=== PATIENT | male | born 1980 | race Caucasian/White ===

== ENCOUNTER 2019-09-24 12:46 | Emergency (ER) | payer SELFPAY ==
[2019-09-24] MEDS ORDERED: NORMAL SALINE 1000 ML 1,000 ML IV ONE (12:59)
[2019-09-24] MEDS ORDERED: THIAMINE HCL 100 MG in NORMAL SALINE 50 ML IV ONE ×2 (13:00→15:30)
--- NOTE | 2019-09-24 13:02 | ER Document Report ---
ED Medical Screen (RME) - General Chief Complaint: Dizziness Stated Complaint: DIZZY/WEAK Time Seen by Provider: 09/24/19 12:54 TRAVEL OUTSIDE OF THE [place] IN LAST 30 DAYS: No - HPI Notes: 09/24/19 13:00 39-year-old male to the emergency department with complaints of dizziness and weakness that has been ongoing for the past year and getting worse most recently. He states that he feels like his cannot pass out all the time. He states that certain positions do not make this worse. He denies any chest pain, shortness of breath. He does drink alcohol quite excessivelyapproximately 6 beers a day. This is actually a decrease in what he had been in taking. He does admit to "diarrhea" for the past 2 years which he qualifies as loose and watery. He states he has not had a normal bowel movement since he took clindamycin 2 years ago for sinus infection. He denies any abdominal pain. He states he typically has 2-3 bowel movements a day. He denies any seizure activity or any other complaints. I performed a brief medical screening exam on this patient and determined he needs further management and evaluation by means at ER provider. I placed initial orders to help expedite in his treatment plan today to include lab work and medications. - Related Data Allergies/Adverse Reactions: Penicillins Allergy (Verified 09/08/15 14:36) Past Medical History - Social History Chew tobacco use (# tins/day): No Frequency of alcohol use: Heavy Drug Abuse: Marijuana - Immunizations Hx Diphtheria, Pertussis, Tetanus Vaccination: Yes Physical Exam - Vital signs Vitals: Temp Pulse Resp BP Pulse Ox 98.4 F 98 20 141/95 H 97 09/24/19 12:50 09/24/19 12:50 09/24/19 12:50 09/24/19 12:50 09/24/19 12:50 Course - Vital Signs Vital signs: Temp Pulse Resp BP Pulse Ox 98.4 F 98 20 141/95 H 97 09/24/19 12:50 09/24/19 12:50 09/24/19 12:50 09/24/19 12:50 09/24/19 12:50
[2019-09-24 14:02] LABS: ABSOLUTE EOSINOPHILS # (AUTO) 0.1 10^3/uL (0.0-0.6); ABSOLUTE LYMPHOCYTES (AUTO) 0.9 10^3/uL (0.5-4.7); ABSOLUTE MONOCYTES (AUTO) 0.7 10^3/uL (0.1-1.4); ABSOLUTE NEUT (AUTO) 3.6 10^3/uL (1.7-8.2); BASOPHILS % (AUTO) 0.9 % (0-2); LYMPHOCYTES % (AUTO) 16.2 % (13-45); MEAN CORPUSCULAR HEMOGLOBIN 34.1 pg (27.0-33.4); MEAN CORPUSCULAR HGB CONC 34.2 g/dL (32.0-36.0); MEAN CORPUSCULAR VOLUME 100 fl (80-97); MONOCYTES % (AUTO) 13.1 % (3-13); PLATELET COUNT 246 10^3/uL (150-450); RED BLOOD COUNT 5.58 10^6/uL (4.35-5.55); RED CELL DISTRIBUTION WIDTH 14.4 % (11.5-14.0); SEGMENTED NEUTROPHILS % (AUTO) 67.8 % (42-78); TOTAL CELLS COUNTED % (AUTO) 100 %; WHITE BLOOD COUNT 5.4 10^3/uL (4.0-10.5)
[2019-09-24 14:05] LABS: HEMATOCRIT 55.6 % (37.9-51.0)
[2019-09-24 14:12] LABS: APPEARANCE,URINE SLIGHTLY-CLOUDY; BILIRUBIN,URINE NEGATIVE (NEGATIVE); COLOR,URINE AMBER; GLUCOSE, URINE NEGATIVE (NEGATIVE); KETONES,URINE TRACE mg/dL (NEGATIVE); LEUKOCYTE ESTERASE,URINE TRACE (NEGATIVE); NITRITE,URINE NEGATIVE (NEGATIVE); PROTEIN,URINE 30 mg/dL (NEGATIVE); URINE SPECIFIC GRAVITY 1.027
[2019-09-24 14:23] LABS: ALBUMIN 4.8 g/dL (3.5-5.0); ALCOHOL < 10 mg/dL (NONE DETECTED); ALKALINE PHOSPHATASE 56 U/L (38-126); ANION GAP 11 (5-19); ASPARTATE AMINO TRANSFERASE 22 U/L (17-59); BILIRUBIN,DIRECT 0.2 mg/dL (0.0-0.4); BILIRUBIN,TOTAL 0.9 mg/dL (0.2-1.3); BLOOD UREA NITROGEN 10 mg/dL (7-20); CALCIUM 10.1 mg/dL (8.4-10.2); CARBON DIOXIDE 25 mmol/L (22-30); CHLORIDE 104 mmol/L (98-107); GLUCOSE 93 mg/dL (75-110); POTASSIUM 4.7 mmol/L (3.6-5.0); TOTAL PROTEIN 7.7 g/dL (6.3-8.2)
[2019-09-24 14:27] LABS: URINE AMPHETAMINES SCREEN NEGATIVE; URINE BARBITURATES SCREEN NEGATIVE; URINE BENZODIAZEPINES SCREEN NEGATIVE; URINE COCAINE SCREEN NEGATIVE; URINE MARIJUANA (THC) SCREEN UNCONFIRMED POSITIVE; URINE METHADONE SCREEN NEGATIVE; URINE PHENCYCLIDINE SCREEN NEGATIVE
--- NOTE | 2019-09-24 16:19 | EKG REPORT ---
SEVERITY:- NORMAL ECG - SINUS RHYTHM : Confirmed by: Bonnie Coleman MD 24-Sep-2019 16:17:20
--- NOTE | 2019-09-24 16:53 | ER Document Report ---
ED Dizziness/Weakness - General Chief Complaint: Dizziness Stated Complaint: DIZZY/WEAK Time Seen by Provider: 09/24/19 12:54 Primary Care Provider: [facility] [Provider Group] - Follow up as needed [facility] [Provider Group] - Follow up as needed Notes: Patient is a 39-year-old male who presents emergency department with a chief complaint of weakness and dizziness. Patient states that for about the past year he has had no energy. Some days he feels like she wants to pass out. He denies actually ever passing out. Patient does admit to drinking 6 beers a day. Patient is also concerned about HIV exposure. Patient states that he has had sex with many men and he is concerned for HIV. He does not have a primary care provider and does not seen the health department for this concern. Patient does not have any concern for gonorrhea or chlamydia. Patient denies any numbness, tingling, or patient states that his memory is intact. TRAVEL OUTSIDE OF THE [place] IN LAST 30 DAYS: No - Related Data Allergies/Adverse Reactions: Penicillins Allergy (Verified 09/08/15 14:36) Past Medical History - Social History Smoking Status: Current Every Day Smoker Chew tobacco use (# tins/day): No Frequency of alcohol use: Heavy Drug Abuse: Marijuana Family History: Reviewed & Not Pertinent Patient has suicidal ideation: No Patient has homicidal ideation: No - Immunizations Hx Diphtheria, Pertussis, Tetanus Vaccination: Yes Review of Systems - Review of Systems Notes: REVIEW OF SYSTEMS: CONSTITUTIONAL : Denies recent illness. Denies recent unintentional weight loss. Denies fever, chills, or sweats. EENT: Denies eye, ear, throat, or mouth pain, discharge, or symptoms. Denies nasal or sinus congestion. CARDIOVASCULAR: Denies chest pain. RESPIRATORY: Denies shortness of breath, cough, congestion, difficulty breathing, or wheezing. GASTROINTESTINAL: Denies nausea, vomiting, and diarrhea. Denies abdominal pain. Denies constipation. GENITOURINARY: Denies difficulty urinating, burning, blood in urine, urgency or frequency. MUSCULOSKELETAL: Denies neck and back pain. Denies joint pain or swelling. SKIN: Denies rash, itchiness, or lesions HEMATOLOGIC : Denies easy bruising or bleeding. LYMPHATIC: Denies swollen, painful, enlarged glands. NEUROLOGICAL: See HPI. PSYCHIATRIC: Denies stress, anxiety, alteration in sleep patterns, or depression. All other systems reviewed and negative. Physical Exam - Vital signs Vitals: Temp Pulse Resp BP Pulse Ox 98.4 F 98 20 141/95 H 97 09/24/19 12:50 09/24/19 12:50 09/24/19 12:50 09/24/19 12:50 09/24/19 12:50 - Notes Notes: PHYSICAL EXAMINATION: GENERAL: Appears well, healthy, well-nourished, no acute distress. HEAD: Normocephalic, atraumatic. EYES: PERRL, conjunctiva normal, all extraocular movements intact, sclera nonicteric ENT: Dry mucous membranes. NECK: Supple, no noticeable swelling, redness, rash. Normal range of motion. LUNGS: Equal breath sounds bilaterally and clear to auscultation. No wheezes rales or rhonchi. CARDIOVASCULAR: S1-S2, regular rate, regular rhythm. Radial pulses 2+, normal. ABDOMEN: Normoactive bowel sounds. Soft, nontender, no guarding, no rebound tenderness, and no masses palpated. EXTREMITIES: Normal strength and range of motion, no pitting or edema. No cyanosis. NEUROLOGICAL: Moves all extremities upon command. Strength 5/5 in all extremities. PSYCH: Appears nervous, trembling (patient states he is nervous just because he was afraid to talk about his concern for HIV). SKIN: Warm, dry. No rash, lesions, ulcerations noted. Normal skin turgor. Course - Re-evaluation Re-evalutation: 09/24/19 17:38 The patient was trembling when I assessed him. I asked him if he was nervous. Stated he was actually cold, which it was cold in the room. I offered him warm blankets. He said that he be exposure and asked if he was tested for HIV. I explained to the patient that we do not do HIV testing here, as there is no way we can follow-up with him as this is not a primary care office. I instructed him on seeing the health department for HIV testing. I offered the patient Valium. I am going to give him a few minutes to think about receiving a dose of Valium. Patient states that his last drink was last night. Patient states that he normally does not drink during the day, but drinks when he gets home around 1830. Patient's labs showed that he is very dehydrated. He is receiving a liter of fluids at this moment. I instructed the patient to make sure that he drinks plenty of water when he goes home. Urinalysis shows that he is got trace leukocytes in his urine. Urine will be sent for culture. Patient denies any dysuria. Patient was positive for marijuana. Patient states that he does it occasionally. 09/24/19 16:57 I have reevaluated the patient and the patient is refusing Valium at this time. He states that he feels better after speaking with me in regards to his concerns about his possible HIV exposure. Patient has stopped shaking. I also gave him resources for substance abuse. Lipase was negative. He is in agreement with this plan. Follow-up precautions were given. Verbal discharge instructions were given to the patient. They verbalized understanding. They are stable for discharge. - Vital Signs Vital signs: Temp Pulse Resp BP Pulse Ox 98.5 F 74 16 139/93 H 99 09/24/19 17:11 09/24/19 17:11 09/24/19 17:11 09/24/19 17:11 09/24/19 17:11 - Laboratory Result Diagrams: 09/24/19 13:33 09/24/19 13:33 Laboratory results interpreted by me: 09/24/19 09/24/19 13:33 13:33 RBC 5.58 H Hgb 19.0 H Hct 55.6 H MCV 100 H MCH 34.[address] [place] % (Auto) 13.1 H Urine Protein 30 H Urine Ketones TRACE H Urine Urobilinogen 2.0 H Ur Leukocyte Esterase TRACE H Discharge - Discharge Clinical Impression: Dizziness, Weakness, Alcohol abuse Condition: Stable Disposition: HOME, SELF-CARE Additional Instructions: You were seen today in the emergency department for dizziness and weakness. Your labs show that you are dehydrated. You received fluids here in the emergency department. As far as your concern for HIV, please follow-up with the health department in regards to this issue. They can test you. Your urine was sent for culture. [address] [place] [id number] You are also malnourished due to your alcohol use. Sure you are eating healthy. You are also being started on thiamine. Please follow-up with 1 of the clinics below in regards to detox for your alcohol use. Prescriptions: Thiamine HCl [Thiamine 100 mg Tablet] 100 mg PO DAILY #30 tablet Forms: Return to Work Referrals: [facility] [Provider Group] - Follow up as needed [facility] [Provider Group] - Follow up as needed
[2019-09-24 17:11] VITALS: BP 139/93
== END 2019-09-24 17:14 | disposition home or self-care (01) ==
LOC: ER 12:46
DX: R42 Dizziness and giddiness (principal); R53.1 Weakness; F10.10 Alcohol abuse, uncomplicated; F17.200 Nicotine dependence, unspecified, uncomplicated; Z88.0 Allergy status to penicillin
CPT/HCPCS: 93005; 36415; 87086; 80307 ×2; 83690; 83735; 85025; 80053; 81001; 93010; J3411; J7030; 96361; 96365; 99284

== ENCOUNTER 2019-11-21 08:58 | Emergency (ER) | payer SELFPAY ==
[2019-11-21 09:03] VITALS: BP 137/85
[2019-11-21] MEDS ORDERED: AZITHROMYCIN 250 MG TABLET PO ONE (10:09)
[2019-11-21] MEDS ORDERED: PSEUDOEPHEDRINE HCL 30 MG TABLET PO ONE (10:09)
--- NOTE | 2019-11-21 10:13 | ER Document Report ---
HPI - HPI Patient complains to provider of: Sinus congestion Time Seen by Provider: 11/21/19 10:09 Onset/Duration: Persistent Quality of pain: Pressure Pain Level: 3 Context: Patient presents complaining of sinus congestion for the past 2 weeks. Patient reports yellow discharge from the nose. Patient denies any fever. Patient is concerned about sinusitis Associated Symptoms: Sinus pain/drainage. denies: Fever, Nausea, Vomiting, Sore throat Exacerbated by: Denies Relieved by: Denies Similar symptoms previously: Yes Recently seen / treated by doctor: No - ROS ROS below otherwise negative: Yes Systems Reviewed and Negative: Yes All other systems reviewed and negative - CONSTITUTIONAL Constitutional: DENIES: Fever - EENT EENT: REPORTS: Nasal Drainage-Purulent, Congestion - NEURO Neurology: REPORTS: Headache - GASTROINTESTINAL Gastrointestinal: DENIES: Patient vomiting - DERM Skin Color: Normal Skin Problems: None Past Medical History - General Information source: Patient - Social History Smoking Status: Current Every Day Smoker Frequency of alcohol use: Occasional Drug Abuse: Marijuana Occupation: Billing Family History: Reviewed & Not Pertinent - Medical History Medical History: Negative Surgical Hx: Negative - Immunizations Hx Diphtheria, Pertussis, Tetanus Vaccination: Yes Vertical Provider Document - CONSTITUTIONAL Agree With Documented VS: Yes Exam Limitations: No Limitations General Appearance: WD/WN, No Apparent Distress - INFECTION CONTROL TRAVEL OUTSIDE OF THE [place] IN LAST 30 DAYS: No - HEENT HEENT: Atraumatic, Normocephalic. negative: Pharyngeal Exudate, Pharyngeal Tenderness, Pharyngeal Erythema, Tympanic Membrane Red, Tympanic Membrane Bulgin g Notes: Swollen maxillary sinuses, tender maxillary sinus, swollen nasal mucosa no drainage - NECK Neck: Normal Inspection, Supple. negative: Lymphadenopathy-Left, Lymphadenopathy-Right - RESPIRATORY Respiratory: Breath Sounds Normal, No Respiratory Distress. negative: Chest Non-Tender - CARDIOVASCULAR Cardiovascular: Regular Rate, Regular Rhythm, No Murmur - BACK Back: Normal Inspection - MUSCULOSKELETAL/EXTREMETIES Musculoskeletal/Extremeties: MAEW - NEURO Level of Consciousness: Awake, Alert, Appropriate Motor/Sensory: No Motor Deficit - DERM Integumentary: Warm, Dry, No Rash Course - Re-evaluation Re-evalutation: 11/21/19 10:10 Patient with sinus drainage, tenderness and facial swelling for the past 2 weeks, no fever. Patient nontoxic in appearance. Patient is allergic to penicillins and therefore will be started on azithromycin for sinusitis at this time. - Vital Signs Vital signs: Temp Pulse Resp BP Pulse Ox 98 F 88 18 137/85 H 99 11/21/19 09:02 11/21/19 09:02 11/21/19 09:02 11/21/19 09:02 11/21/19 09:02 Discharge - Discharge Clinical Impression: Sinusitis Qualifiers: Sinusitis location: maxillary Chronicity: acute Recurrence: non-recurrent Qualified Code(s): J01.00 - Acute maxillary sinusitis, unspecified Condition: Stable Disposition: HOME, SELF-CARE Instructions: Azithromycin ([facility]), Sinusitis ([facility]) Additional Instructions: Return immediately for any new or worsening symptoms Followup with your primary care provider, call tomorrow to make a followup appointment May use Sudafed [id number] to help with congestion symptoms use saline nasal spray to help with congestion Prescriptions: Fluticasone Propionate [Flonase Nasal Chester 50 Mcg/Chester 16 gm] 2 spray NASL DAILY #1 bottle Naproxen [Naprosyn 250 Nmg Tablet] 1 tab PO BID #14 tablet Azithromycin [Zithromax 250 mg Tablet] 250 mg PO DAILY 4 Days tablet Forms: Return to Work Referrals: [facility] [Provider Group] - Follow up as needed
== END 2019-11-21 10:21 | disposition home or self-care (01) ==
LOC: ER 08:58
DX: J01.00 Acute maxillary sinusitis, unspecified (principal); F17.200 Nicotine dependence, unspecified, uncomplicated; Z88.0 Allergy status to penicillin
CPT/HCPCS: 99283

== ENCOUNTER 2019-12-09 10:06 | Emergency (ER) | payer OTHER ==
[2019-12-09] MEDS ORDERED: METOCLOPRAMIDE HCL INJ/PF 10 MG/2 ML SDV IV ONE (10:59)
[2019-12-09] MEDS ORDERED: DIPHENHYDRAMINE HCL 50 MG/ML VIAL IV ONE (10:59)
[2019-12-09] MEDS ORDERED: NORMAL SALINE 1000 ML 1,000 ML IV ONE (10:59)
[2019-12-09] MEDS ORDERED: KETOROLAC TROMETHAMINE INJ/PF 30 MG/1 ML SDV IV ONE (10:59)
--- NOTE | 2019-12-09 11:03 | ER Document Report ---
ED Medical Screen (RME) - General Chief Complaint: Flu Symptoms Stated Complaint: FEVER,CHILLS,COUGH Time Seen by Provider: 12/09/19 10:51 Notes: Patient is a 39-year-old male who presents emergency department with a chief complaint of flulike symptoms. Patient reports his symptoms developed about 48 hours ago. Patient reports he is having a severe headache located in the frontal aspect of his head. Patient reports dry cough, shortness of breath. Patient reports he has vomited about 6 times in the past 12 hours. Patient reports he has been exposed to multiple sick coworkers. Patient reports severe body aches. Patient did not get the flu vaccine. TRAVEL OUTSIDE OF THE [place] IN LAST 30 DAYS: No - Related Data Allergies/Adverse Reactions: Penicillins Allergy (Verified 09/08/15 14:36) Past Medical History - Immunizations Hx Diphtheria, Pertussis, Tetanus Vaccination: Yes Physical Exam - Vital signs Vitals: Temp Pulse Resp BP Pulse Ox 99.2 F 112 H 20 118/90 H 100 12/09/19 10:12/09/19 10:12/09/19 10:12/09/19 10:12/09/19 10:09 Course - Re-evaluation Re-evalutation: 12/09/19 11:02 Will test for the flu, give IV fluids as the patient is slightly tachycardic with a heart rate of 112 with reports of vomiting over the past 12 hours. I have greeted and performed a rapid initial assessment of this patient. A comprehensive ED assessment and evaluation of the patient, analysis of test results and completion of the medical decision making process will be conducted by additional ED providers. - Vital Signs Vital signs: Temp Pulse Resp BP Pulse Ox 99.2 F 112 H 20 118/90 H 100 12/09/19 10:12/09/19 10:12/09/19 10:12/09/19 10:12/09/19 10:09
[2019-12-09] MEDS ORDERED: KETOROLAC TROMETHAMINE 60 MG/2 ML SDV IM ONE (11:36)
[2019-12-09] MEDS ORDERED: ONDANSETRON 4 MG TAB.RAPDIS PO ONE (11:36)
--- NOTE | 2019-12-09 11:37 | ER Document Report ---
ED General - General Chief Complaint: Flu Symptoms Stated Complaint: FEVER,CHILLS,COUGH Time Seen by Provider: 12/09/19 10:51 Notes: Patient presents with flulike symptoms headache sore throat cough joint pain body aches for 3 days, did get flu shot. Moderate intensity. Not better with [place] cold. Vomiting 3 times today as well no diarrhea. Multiple ill contacts. TRAVEL OUTSIDE OF THE [place] IN LAST 30 DAYS: No - Related Data Allergies/Adverse Reactions: Penicillins Allergy (Verified 09/08/15 14:36) Past Medical History - Social History Smoking Status: Unknown if Ever Smoked Family History: Reviewed & Not Pertinent Patient has suicidal ideation: No Patient has homicidal ideation: No - Immunizations Hx Diphtheria, Pertussis, Tetanus Vaccination: Yes Review of Systems - Review of Systems Notes: REVIEW OF SYSTEMS GEN fever malaise ENT: Denies sore throat, nasal discharge, ear pain EYES: Denies blurry vision, eye pain, discharge CV: Denies chest pain, palpitations, edema RESP: Denies cough, shortness of breath, wheezing GI: Resolved vomiting MSK: Denies joint pain/swelling, edema, SKIN: Denies rash, skin lesions LYMPH: Denies swollen glands/lymph nodes NEURO: Denies headache, focal weakness or numbness, dizziness PSYCH: Denies depression, suicidal or homicidal ideation PHYSICAL EXAMINATION General: No acute distress, well-nourished Head: Atraumatic, normocephalic ENT: Mouth normal, oropharynx moist, no exudates or tonsillar enlargement Eyes: Conjunctiva normal, pupils equal, lids normal Neck: No JVD, supple, no guarding CVS: Normal rate, regular rhythm, no murmurs Resp: No resp distress, equal and normal breath sounds bilaterally GI: Nondistended, soft, no tenderness to palpation, no rebound or guarding Ext: No deformities, no edema, normal range of motion in upper and lower ext Back: No CVA or midline TTP Skin: No rash, warm Lymphatic: No lymphadeopathy noted Neuro: Awake, alert. Face symmetric. GCS 15. Physical Exam - Vital signs Vitals: Temp Pulse Resp BP Pulse Ox 99.2 F 112 H 20 118/90 H 100 12/09/19 10:12/09/19 10:12/09/19 10:12/09/19 10:20 10:09 Course - Re-evaluation Re-evalutation: 12/09/19 15:54 Influenza-like illness afebrile here no focal tenderness or lung sounds to suggest pneumonia or abdominal cause of his symptoms Out of the window for Tamiflu, no chronic illness which would suggest empiric need for treatment so testing was deferred. No meningismus despite headache and no photophobia. Given IM Toradol. Discharged with supportive care. - Vital Signs Vital signs: Temp Pulse Resp BP Pulse Ox 99.5 F 102 H 18 116/72 99 12/09/19 11:48 12/09/19 11:48 12/09/19 11:48 12/09/19 11:48 12/09/19 11:48 Discharge - Discharge Clinical Impression: Influenza Condition: Good Disposition: HOME, SELF-CARE Instructions: Influenza ([facility]) [id number] Additional Instructions: Follow-up with your regular doctor as needed Forms: Return to Work
--- NOTE | 2019-12-09 11:40 | RADIOLOGY REPORT (SQ) ---
EXAM DESCRIPTION: CHEST 2 VIEWS COMPLETED DATE/TIME: 12/09/2019 11:30 am REASON FOR STUDY: shortness of breath COMPARISON: None. EXAM PARAMETERS: NUMBER OF VIEWS: two views TECHNIQUE: Digital Frontal and Lateral radiographic views of the chest acquired. RADIATION DOSE: NA LIMITATIONS: none FINDINGS: LUNGS AND PLEURA: There is bilateral interstitial airspace disease. No focal consolidatio n or effusions. MEDIASTINUM AND HILAR STRUCTURES: No masses or contour abnormalities. HEART AND VASCULAR STRUCTURES: Heart normal size. No evidence for failure. BONES: No acute findings. HARDWARE: None in the chest. OTHER: No other significant finding. IMPRESSION: Bilateral interstitial airspace disease infectious or inflammatory process cannot be exc luded. There is no focal consolidation. There are no old films available for comparison. TECHNICAL DOCUMENTATION: JOB ID: [id number] [employer]- All Rights Reserved Reading location - IP/workstation name: [email or web address]
[2019-12-09 11:49] VITALS: BP 116/72
== END 2019-12-09 12:29 | disposition home or self-care (01) ==
LOC: ER 10:06
DX: J11.1 Influenza due to unidentified influenza virus with other respiratory manifestations (principal); R50.9 Fever, unspecified; R51 Headache; R05 Cough; R11.10 Vomiting, unspecified; Z88.0 Allergy status to penicillin
CPT/HCPCS: 99283; 96372; 71046; J1885; S0119

== ENCOUNTER 2019-12-12 09:06 | Emergency (ER) | payer OTHER ==
--- NOTE | 2019-12-12 09:57 | ER Document Report ---
ED Medical Screen (RME) - General Chief Complaint: Alcohol Withdrawl Stated Complaint: WITHDRAWAL/ALCOHOL Time Seen by Provider: 12/12/19 09:55 Mode of Arrival: Ambulatory Information source: Patient Notes: 39-year-old male presented to ED for "alcohol withdrawals ". He states he was drinking very heavily until Monday when he got the flu and he has not been able to drink since then. He states he has been extremely nauseated was vomiting until yesterday. Insomniac he states he did have severe tremors but now they are mild. He states he would just like to feel better this time and then is going to try to stay off of the alcohol. I have greeted and performed a rapid initial assessment of this patient. A comprehensive ED assessment and evaluation of the patient, analysis of test results and completion of medical decision making process will be conducted by an additional ED providers. TRAVEL OUTSIDE OF THE [place] IN LAST 30 DAYS: No - Related Data Allergies/Adverse Reactions: Penicillins Allergy (Verified 09/08/15 14:36) Past Medical History - Immunizations Hx Diphtheria, Pertussis, Tetanus Vaccination: Yes Physical Exam - Vital signs Vitals: Temp Pulse Resp BP Pulse Ox 98.3 F 98 16 110/76 96 12/12/19 09:11 12/12/19 09:11 12/12/19 09:11 12/12/19 09:11 12/12/19 09:11 Course - Vital Signs Vital signs: Temp Pulse Resp BP Pulse Ox 98.3 F 98 16 110/76 96 12/12/19 09:11 12/12/19 09:11 12/12/19 09:11 12/12/19 09:11 12/12/19 09:11
[2019-12-12 10:35] LABS: ABSOLUTE LYMPHOCYTES (AUTO) 0.7 10^3/uL (0.5-4.7); ABSOLUTE MONOCYTES (AUTO) 0.4 10^3/uL (0.1-1.4); ABSOLUTE NEUT (AUTO) 1.8 10^3/uL (1.7-8.2); BASOPHILS % (AUTO) 0.6 % (0-2); EOSINOPHILS % (AUTO) 0.3 % (0-6); HEMATOCRIT 51.3 % (37.9-51.0); HEMOGLOBIN 17.9 g/dL (13.5-17.0); LYMPHOCYTES % (AUTO) 24.5 % (13-45); MEAN CORPUSCULAR HEMOGLOBIN 33.6 pg (27.0-33.4); MEAN CORPUSCULAR HGB CONC 34.9 g/dL (32.0-36.0); MEAN CORPUSCULAR VOLUME 96 fl (80-97); MONOCYTES % (AUTO) 14.9 % (3-13); PLATELET COUNT 132 10^3/uL (150-450); RED BLOOD COUNT 5.32 10^6/uL (4.35-5.55); RED CELL DISTRIBUTION WIDTH 13.8 % (11.5-14.0); SEGMENTED NEUTROPHILS % (AUTO) 59.7 % (42-78); TOTAL CELLS COUNTED % (AUTO) 100 %
[2019-12-12 10:43] LABS: APPEARANCE,URINE SLIGHTLY-CLOUDY; BILIRUBIN,URINE NEGATIVE (NEGATIVE); GLUCOSE, URINE NEGATIVE (NEGATIVE); KETONES,URINE 80 mg/dL (NEGATIVE); PROTEIN,URINE 30 mg/dL (NEGATIVE); URINE SPECIFIC GRAVITY 1.015
[2019-12-12 10:46] LABS: COLOR,URINE YELLOW
[2019-12-12 10:55] LABS: ALBUMIN 4.2 g/dL (3.5-5.0); ALKALINE PHOSPHATASE 48 U/L (38-126); ANION GAP 10 (5-19); ASPARTATE AMINO TRANSFERASE 39 U/L (17-59); BILIRUBIN,TOTAL 0.6 mg/dL (0.2-1.3); BLOOD UREA NITROGEN 8 mg/dL (7-20); CALCIUM 9.4 mg/dL (8.4-10.2); CARBON DIOXIDE 32 mmol/L (22-30); CHLORIDE 98 mmol/L (98-107); GLUCOSE 87 mg/dL (75-110); POTASSIUM 3.9 mmol/L (3.6-5.0); TOTAL PROTEIN 7.1 g/dL (6.3-8.2)
[2019-12-12 10:57] LABS: ALCOHOL < 10 mg/dL (NONE DETECTED)
[2019-12-12 11:00] LABS: URINE AMPHETAMINES SCREEN NEGATIVE; URINE BARBITURATES SCREEN NEGATIVE; URINE BENZODIAZEPINES SCREEN NEGATIVE; URINE COCAINE SCREEN NEGATIVE; URINE METHADONE SCREEN NEGATIVE; URINE PHENCYCLIDINE SCREEN NEGATIVE
[2019-12-12 11:02] LABS: URINE MARIJUANA (THC) SCREEN UNCONFIRMED POSITIVE
[2019-12-12] MEDS ORDERED: DIPHENHYDRAMINE HCL 50 MG/ML VIAL IV ONE (12:21)
[2019-12-12] MEDS: NORMAL SALINE 1000 ML 1,000 ML IV PRN ×2 (12:26→12:28)
--- NOTE | 2019-12-12 12:28 | ER Document Report ---
ED General - General Chief Complaint: Alcohol Withdrawl Stated Complaint: WITHDRAWAL/ALCOHOL Time Seen by Provider: 12/12/19 09:55 Mode of Arrival: Ambulatory Information source: Patient Notes: 39-year-old male recently diagnosed with flu presents today with complaints of nausea vomiting diarrhea. Patient reports last time he vomited was yesterday. He reports he has chronic diarrhea. Reports symptoms started on Monday. Patient reports that he usually drinks 2-4 large bottles of Hurricane beer a day. Reports he has been drinking daily since he was 21 years old. As a result of this flu he has not been able to drink and he is going through withdrawals. He reports he now feels a little bit shaky and has been unable to sleep. He reports he did have a half a bowl of soup yesterday. TRAVEL OUTSIDE OF THE [place] IN LAST 30 DAYS: No - HPI Onset: Other Onset/Duration: Persistent Quality of pain: No pain Associated symptoms: Nonproductive cough, Diarrhea, Vomiting Exacerbated by: Denies Relieved by: Denies Similar symptoms previously: Yes Recently seen / treated by doctor: Yes - Related Data Allergies/Adverse Reactions: Penicillins Allergy (Verified 09/08/15 14:36) Past Medical History - General Information source: Patient - Social History Smoking Status: Current Every Day Smoker Cigarette use (# per day): Yes Frequency of alcohol use: Heavy Drug Abuse: Marijuana Occupation: call center Family History: Reviewed & Not Pertinent Patient has suicidal ideation: No Patient has homicidal ideation: No Pulmonary Medical History: Reports: Hx Bronchitis Surgical Hx: Negative - Immunizations Hx Diphtheria, Pertussis, Tetanus Vaccination: Yes Review of Systems - Review of Systems Notes: Review HPI for review of systems., All other systems negative Physical Exam - Vital signs Vitals: Temp Pulse Resp BP Pulse Ox 98.3 F 98 16 110/76 96 12/12/19 09:11 12/12/19 09:11 12/12/19 09:11 12/12/19 09:11 12/12/19 09:11 - Notes Notes: PHYSICAL EXAMINATION: GENERAL: Well-appearing and in no acute distress HEAD: Atraumatic, normocephalic. EYES: Pupils equal round and reactive to light, extraocular movements intact, sclera anicteric, conjunctiva are normal. ENT: nares patent, oropharynx clear without exudates. Moist mucous membranes. NECK: Normal range of motion, supple without lymphadenopathy LUNGS: CTAB and equal. No wheezes rales or rhonchi. HEART: Regular rate and rhythm without murmurs ABDOMEN: Soft, no tenderness. No guarding, no rebound BACK: Denies pain EXTREMITIES: Normal range of motion NEUROLOGICAL: Cranial nerves grossly intact. PSYCH: Normal mood, normal affect. SKIN: Warm, Dry, normal turgor, no rashes or lesions noted Course - Re-evaluation Re-evalutation: 12/12/19 12:35 Patient presents to the emergency department with history of flu and unable to drink alcohol for the past 4 days. Reports he is a daily drinker heavy since he has been 21 years old. Patient reports he drinks 2-4 large Hurricaine beers a day. Also smokes marijuana. Patient reports he has been unable to drink so he is going through withdrawals. Patient does not want to go to rehab center. Reports he cannot miss work. Patient reports he is little bit shaky but other than that he is okay. He received 2 L of fluids and Benadryl. Ready to be discharged home Laboratory 12/12/19 12/12/19 12/12/19 10:15 10:15 10:15 WBC 3.0 L RBC 5.32 Hgb 17.9 H Hct 51.3 H MCV 96 MCH 33.6 H MCHC 34.9 RDW 13.8 Plt Count 132 L Lymph % (Auto) 24.5 Carver % (Auto) 14.9 H Eos % (Auto) 0.3 Baso % (Auto) 0.6 Absolute Neuts (auto) 1.8 Absolute Lymphs (auto) 0.7 Absolute Monos (auto) 0.4 Absolute Eos (auto) 0.0 Absolute Basos (auto) 0.0 Seg Neutrophils % 59.7 Sodium 139.7 Potassium 3.9 Chloride 98 Carbon Dioxide 32 H Anion Gap 10 BUN 8 Creatinine 0.72 Est GFR ( Amer) > 60 Est GFR (MDRD) Non-Af > 60 Glucose 87 Calcium 9.4 Total Bilirubin 0.6 Direct Bilirubin 0.0 Neonat Total Bilirubin Not Reportable Neonat Direct Bilirubin Not Reportable Neonat Indirect Bili Not Reportable AST 39 ALT 19 Alkaline Phosphatase 48 Total Protein 7.1 Albumin 4.2 Lipase 151.0 Urine Color YELLOW Urine Appearance SLIGHTLY-CLOUDY Urine pH 6.0 Ur Specific [place]land 1.015 Urine Protein 30 H Urine Glucose (UA) NEGATIVE Urine Ketones 80 H Urine Blood NEGATIVE Urine Nitrite (Reflex) NEGATIVE Urine Bilirubin NEGATIVE Urine Urobilinogen 4.0 H Leukocyte Esterase Rfl NEGATIVE Urine RBC (Auto) 0 Urine WBC (Reflex) 1 Squamous Epi Cells Auto <1 Urine Mucus (Auto) RARE Urine Ascorbic Acid NEGATIVE Urine Opiates Screen Urine Methadone Screen Ur Barbiturates Screen Ur Phencyclidine Scrn Ur Amphetamines Screen U Benzodiazepines Scrn Urine Cocaine Screen U Marijuana (THC) Screen Serum Alcohol < 10 12/12/19 10:15 WBC RBC Hgb Hct MCV MCH MCHC RDW Plt Count Lymph % (Auto) Carver % (Auto) Eos % (Auto) Baso % (Auto) Absolute Neuts (auto) Absolute Lymphs (auto) Absolute Monos (auto) Absolute Eos (auto) Absolute Basos (auto) Seg Neutrophils % Sodium Potassium Chloride Carbon Dioxide Anion Gap BUN Creatinine Est GFR ( Amer) Est GFR (MDRD) Non-Af Glucose Calcium Total Bilirubin Direct Bilirubin Neonat Total Bilirubin Neonat Direct Bilirubin Neonat Indirect Bili AST ALT Alkaline Phosphatase Total Protein Albumin Lipase Urine Color Urine Appearance Urine pH Ur Specific [place]land Urine Protein Urine Glucose (UA) Urine Ketones Urine Blood Urine Nitrite (Reflex) Urine Bilirubin Urine Urobilinogen Leukocyte Esterase Rfl Urine RBC (Auto) Urine WBC (Reflex) Squamous Epi Cells Auto Urine Mucus (Auto) Urine Ascorbic Acid Urine Opiates Screen NEGATIVE Urine Methadone Screen NEGATIVE Ur Barbiturates Screen NEGATIVE Ur Phencyclidine Scrn NEGATIVE Ur Amphetamines Screen NEGATIVE U Benzodiazepines Scrn NEGATIVE Urine Cocaine Screen NEGATIVE U Marijuana (THC) Screen UNCONFIRMED POSITIVE Serum Alcohol - Vital Signs Vital signs: Temp Pulse Resp BP Pulse Ox 98.4 F 89 18 134/88 H 95 12/12/19 14:04 12/12/19 14:04 12/12/19 14:04 12/12/19 14:04 12/12/19 14:04 - Laboratory Result Diagrams: 12/12/19 10:15 12/12/19 10:15 Laboratory results interpreted by me: 12/12/19 12/12/19 12/12/19 10:15 10:15 10:15 WBC 3.0 L Hgb 17.9 H Hct 51.3 H MCH 33.6 H Plt Count 132 L Carver % (Auto) 14.9 H Carbon Dioxide 32 H Urine Protein 30 H Urine Ketones 80 H Urine Urobilinogen 4.0 H Discharge - Discharge Clinical Impression: Chronic diarrhea, withdrawal from alcohol Condition: Stable Disposition: HOME, SELF-CARE Instructions: Use of Diphenhydramine, Intravenous (IV) Fluids ([facility]) Additional Instructions: *You have been evaluated for chronic diarrhea, withdrawal from alcohol with shakiness *Over the counter anti-diarrheal as indicated *Push fluids, take Benadryl as indicated *Follow-up with [facility] *Follow up with a primary care provider within a week for recheck *Return to ED for worsening condition, changes, needs Forms: Return to Work
[2019-12-12 14:05] VITALS: BP 134/88
== END 2019-12-12 14:05 | disposition home or self-care (01) ==
LOC: ER 09:06
DX: K52.9 Noninfective gastroenteritis and colitis, unspecified (principal); F10.239 Alcohol dependence with withdrawal, unspecified; R11.2 Nausea with vomiting, unspecified; R05 Cough; F17.210 Nicotine dependence, cigarettes, uncomplicated; Z88.0 Allergy status to penicillin
CPT/HCPCS: 36415; 80307 ×2; 83690; 85025; 80053; 81001; J1200; J7030

== ENCOUNTER 2020-06-02 08:51 | Emergency (ER) | payer SELFPAY ==
[2020-06-02] MEDS ORDERED: NORMAL SALINE 1000 ML 1,000 ML IV ONE (09:43)
--- NOTE | 2020-06-02 10:19 | ER Document Report ---
ED General - General Chief Complaint: Fever Stated Complaint: FEVER,CHILLS,DIARRHEA Time Seen by Provider: 06/02/20 09:38 Notes: HPI: Patient is a 39-year-old male who presents today with the onset Monday of multiple episodes of nonbloody diarrhea. Some mild abdominal cramping before episodes. No recent travel or antibiotics. No fever, vomiting, cough, or shortness of breath. Patient also states that he normally drinks around 12 pack of alcohol. He denies a history of withdrawal. He last drank on Monday evening before he started having the diarrhea. ROS: See HPI All other review of systems reviewed and otherwise negative Reviewed vital signs and nursing note as charted by RN. PHYSICAL EXAM: CONSTITUTIONAL: Alert and oriented and responds appropriately to questions. Well-appearing; well-nourished HEAD: Normocephalic; atraumatic EYES: Sclerae non-icteric ENT: Normal nose; no rhinorrhea; moist mucous membranes; pharynx without lesions noted NECK: Supple without meningismus; non-tender; no cervical lymphadenopathy, no masses CARD: Tachycardic but regular; no murmurs; symmetric distal pulses RESP: Normal chest excursion without splinting or tachypnea; breath sounds clear and equal bilaterally; no wheezes, no rhonchi, no rales ABD/GI: Normal bowel sounds; non-distended; soft, currently nontender to deep p alpation of all 4 quadrants of the abdomen BACK: The back appears normal and is non-tender to palpation EXT: Normal ROM in all joints; non-tender to palpation; no edema SKIN: No acute lesions noted NEURO: CN 2-12 intact; 5/5 bilateral upper and lower extremity strength with sensation intact to light touch PSYCH: The patient's mood and manner are appropriate. Grooming and personal hygiene are appropriate. TRAVEL OUTSIDE OF THE [place] IN LAST 30 DAYS: No - Related Data Allergies/Adverse Reactions: Penicillins Allergy (Verified 06/02/20 09:47) Past Medical History - Social History Smoking Status: Unknown if Ever Smoked Family History: Reviewed & Not Pertinent Pulmonary Medical History: Reports: Hx Bronchitis - Immunizations Hx Diphtheria, Pertussis, Tetanus Vaccination: Yes Physical Exam - Vital signs Vitals: Temp Pulse Resp BP Pulse Ox 99.2 F 127 H 16 128/83 H 96 06/02/20 09:18 06/02/20 09:18 06/02/20 09:18 06/02/20 09:18 06/02/20 09:18 Course - Re-evaluation Re-evalutation: 06/02/20 10:18 Given the above history and physical examination, we will obtain basic labs, liver panel and lipase, provide fluids, and reassess. Patient subjectively and objectively has no tenderness to the abdomen in between episodes. 06/02/20 10:58 Labs as recorded. Normal white count. No obvious signs of anemia. Heart rate is improved. I do not see any obvious tremors or signs of severe alcohol withdrawal. Patient's diarrhea started the same night he did drink a 12 pack so I do not believe this was initiated by alcohol withdrawal. Repeat abdominal exam is again benign. 06/02/20 11:52 Heart rate has improved. Still no pain. No tremors or signs of withdrawal. No episodes of diarrhea here. Patient will be discharged home with strict return precautions and follow-up with the primary care physician. - Vital Signs Vital signs: Temp Pulse Resp BP Pulse Ox 99.0 F 102 H 16 121/88 H 98 06/02/20 11:38 06/02/20 11:38 06/02/20 09:18 06/02/20 11:38 06/02/20 11:38 - Laboratory Result Diagrams: 06/02/20 10:00 06/02/20 10:00 Laboratory results interpreted by me: 06/02/20 06/02/20 10:00 10:00 RBC 5.71 H Hgb 19.0 H Hct 54.3 H Lymph % (Auto) 10.1 L Sodium 135.6 L Carbon Dioxide 20 L Discharge - Discharge Clinical Impression: Abdominal cramping Diarrhea Qualifiers: Diarrhea type: unspecified type Qualified Code(s): R19.7 - Diarrhea, unspecified Condition: Good Disposition: HOME, SELF-CARE Instructions: COVID-19 Guidance for Persons Under Investigation Additional Instructions: Come back immediately for any increased cramping, fevers, vomiting, blood in the stool, or any other acute problems. Please attempt to stay well-hydrated. Please make sure that you quarantine until testing results have returned as we have discussed.
[2020-06-02 10:35] LABS: ABSOLUTE LYMPHOCYTES (AUTO) 0.6 10^3/uL (0.5-4.7); ABSOLUTE MONOCYTES (AUTO) 0.7 10^3/uL (0.1-1.4); ABSOLUTE NEUT (AUTO) 4.6 10^3/uL (1.7-8.2); BASOPHILS % (AUTO) 0.5 % (0-2); EOSINOPHILS % (AUTO) 0.8 % (0-6); HEMATOCRIT 54.3 % (37.9-51.0); LYMPHOCYTES % (AUTO) 10.1 % (13-45); MEAN CORPUSCULAR HEMOGLOBIN 33.2 pg (27.0-33.4); MEAN CORPUSCULAR HGB CONC 34.9 g/dL (32.0-36.0); MEAN CORPUSCULAR VOLUME 95 fl (80-97); PLATELET COUNT 179 10^3/uL (150-450); RED BLOOD COUNT 5.71 10^6/uL (4.35-5.55); RED CELL DISTRIBUTION WIDTH 13.5 % (11.5-14.0); SEGMENTED NEUTROPHILS % (AUTO) 76.6 % (42-78); TOTAL CELLS COUNTED % (AUTO) 100 %; WHITE BLOOD COUNT 5.9 10^3/uL (4.0-10.5)
[2020-06-02 10:54] LABS: ALBUMIN 4.6 g/dL (3.5-5.0); ALKALINE PHOSPHATASE 64 U/L (38-126); ANION GAP 12 (5-19); ASPARTATE AMINO TRANSFERASE 26 U/L (17-59); BILIRUBIN,DIRECT 0.1 mg/dL (0.0-0.4); BILIRUBIN,TOTAL 0.6 mg/dL (0.2-1.3); BLOOD UREA NITROGEN 11 mg/dL (7-20); CALCIUM 9.7 mg/dL (8.4-10.2); CARBON DIOXIDE 20 mmol/L (22-30); CHLORIDE 104 mmol/L (98-107); GLUCOSE 97 mg/dL (75-110); TOTAL PROTEIN 7.7 g/dL (6.3-8.2)
[2020-06-02 14:01] VITALS: BP 125/80
== END 2020-06-02 14:08 | disposition home or self-care (01) ==
LOC: ER 08:51
DX: R10.9 Unspecified abdominal pain (principal); R19.7 Diarrhea, unspecified; R50.9 Fever, unspecified; F10.10 Alcohol abuse, uncomplicated; Z88.0 Allergy status to penicillin; Z20.828 Contact with and (suspected) exposure to other viral communicable diseases
CPT/HCPCS: 99284; 96360; 36415; 83690; 85025; 87635; 80053; J7030; C9803